=== PATIENT | male | born 1975 | race African-American/Black ===

== ENCOUNTER 2016-11-08 14:37 | Emergency (ER) | payer OTHER ==
[~2016-11-08] VITALS: Ht 175.3 cm; Wt 80.0 kg
[2016-11-08 14:55] VITALS: BP 163/107
[2016-11-08 17:54] LABS: CLARITY URINE CLEAR (CLEAR); COLOR URINE YELLOW (YELLOW); GLUCOSE URINE NEGATIVE (NEGATIVE); KETONES URINE NEGATIVE (NEGATIVE); LEUKOCYTE ESTERASE URINE NEGATIVE (NEGATIVE); NITRITE URINE NEGATIVE (NEGATIVE); OCCULT BLOOD URINE NEGATIVE (NEGATIVE); PROTEIN URINE NEGATIVE (NEGATIVE); SPECIFIC GRAVITY URINE 1.028 (1.005-1.030)
== END 2016-11-08 19:17 | disposition left against medical advice (07) ==
LOC: ER 15:17
DX: R36.1 Hematospermia (principal); I10 Essential (primary) hypertension
CPT/HCPCS: 81003; 99283

== ENCOUNTER 2018-09-17 17:12 | Emergency (ER) | payer SELFPAY ==
[~2018-09-17] VITALS: Ht 172.7 cm; Wt 91.0 kg
[2018-09-17] MEDS ORDERED: LISINOPRIL 10MG TABLET PO ONE (23:15)
[2018-09-17 23:48] LABS: CHLORIDE 104 mEq/L (98-107)
[2018-09-17 23:51] LABS: EOSINOPHILS % 3.9 % (0.0-5.0); HEMATOCRIT. 41.9 % (42.0-52.0); HEMOGLOBIN. 13.6 g/dL (14.0-18.0); LYMPHOCYTES % 31.7 % (20.0-50.0); MEAN CORPUSCULAR HEMOGLOBIN 25.5 pg (28.0-32.0); MEAN CORPUSCULAR VOLUME 78.4 fL (80.0-94.0); MEAN PLATELET VOLUME 7.8 fl (7.4-10.4); MONOCYTES % 8.5 % (2.0-8.0); NEUTROPHILS % 54.9 % (40.0-76.0); PLATELET 296 x1000/uL (130-400); RED BLOOD CELL COUNT 5.35 mill/uL (4.7-6.1); RED CELL DISTRIBUTION WIDTH 14.7 % (11.6-14.6)
[2018-09-18 01:45] VITALS: BP 173/122
== END 2018-09-18 02:14 | disposition home or self-care (01) ==
LOC: ER 17:12
DX: G56.02 Carpal tunnel syndrome, left upper limb (principal); I10 Essential (primary) hypertension; R07.89 Other chest pain; E78.00 Pure hypercholesterolemia, unspecified
CPT/HCPCS: 36415; 71045; 80053; 84484; 85025; 93005; 99284; Z7610